=== PATIENT | female | born 1960 | race Caucasian/White ===

== ENCOUNTER → 2017-05-11 | Outpatient (CLI) | payer BC ==
[~2017-05-11] MED LIST: GADOBENATE 529MG/1ML 15ML VIAL IVP ONE; KET10 PO; LEV125 PO; LEVO137T23 PO; PER PO
--- NOTE | 2017-05-11 10:05 | RADIOLOGY IMAGING REPORT ---
FACILITY: [facility] [place] PATIENT NAME: Amber Maria : 1960 MR: [id number] V: [id number] EXAM DATE: ORDERING PHYSICIAN: JEANNIE SHAH TECHNOLOGIST: Location: [facility] [place] Patient: Amber Maria : 1960 Visit/Account:[id number] Date of Sevice: 05/11/2017 EXAMINATION: MRI Brain without IV contrast MRI Brain with IV contrast History: Loss of balance COMPARISON STUDIES: none TECHNIQUE: Multi-planar, multi-sequence brain MRI was performed before and after IV gadolinium. Contrast: 15 mL of IV MultiHance FINDINGS: Paranasal sinuses / mastoid air cells: negative Calvarium and scalp: negative White matter: A few scattered foci of FLAIR signal hyperintensity in the white matter compatible with chronic small vessel disease. Several of these foci demonstrate mildly increased signal intensity o n diffusion weighted images without corresponding ADC dropout and are most compatible with T2 shine t hrough. No definite acute ischemia. Ventricles / sulci / fissures: negative Masses / hemorrhage / midline shift: negative Extra-axial spaces: Normal for age. Enhancement pattern: negative Vascular structures: negative Sagittal midline structures: negative Orbits: negative Visualized upper neck: negative IMPRESSION: 1. No evidence of an intracranial mass, hemorrhage or acute ischemia. 2. Mild chronic small vessel disease. Report Dictated By: Ric Jorge MD at 05/11/2017 9:56 AM Report E-Signed By: Ric Jorge MD at 05/11/2017 10:01 AM WSN:[id number]
--- NOTE | 2017-05-11 10:11 | RADIOLOGY IMAGING REPORT ---
[place] [facility] [place]: Amber Maria : 1960 MR: [id number] V: [id number] EXAM DATE: ORDERING PHYSICIAN: JEANNIE SHAH TECHNOLOGIST: Location: [facility] Patient: Amber Maria : 1960 Visit/Account:[id number] Date of Sevice: 05/11/2017 Study: SHOULDERS BILAT 2 OR MORE VIEW Indication: Chronic pain Comparison study: None Findings: AP views of both shoulders and in internal and external rotation as well as Y views of each shoulder demonstrate that on the right side, there is no evidence of glenohumeral dislocation or acr omioclavicular separation. The proximal humerus, scapula, and clavicle are all intact. There is no evidence of acute fracture. There is no evidence of lytic or blastic bony lesion. On the left side, there is no evidence of significant abnormality of the glenohumeral or acromioclavi cular joints. The left clavicle scapula and proximal humerus are all intact. The visualized soft tissues are unremarkable. IMPRESSION: Unremarkable exam Report Dictated By: Jose Portillo at 05/11/2017 9:53 AM Report E-Signed By: Jose Portillo at 05/11/2017 10:07 AM WSN:[email or web address]
--- NOTE | 2017-05-11 11:09 | RADIOLOGY IMAGING REPORT ---
FACILITY: [facility] PATIENT NAME: Amber Maria : 1960 MR: [id number] V: [id number] EXAM DATE: ORDERING PHYSICIAN: JEANNIE SHAH TECHNOLOGIST: Location: [facility] Patient: Amber Maria : 1960 Visit/Account:[id number] Date of Sevice: 05/11/2017 Study: HIPS BILATERAL Indication: Hip pain Comparison study: None Findings: AP view the pelvis and frog-leg views of both hips demonstrates presence of mild degenerati ve disease of the hip joints bilaterally. The femoral heads and necks are unremarkable bilaterally. The pubic rami are unremarkable bilaterally. There is no evidence of abnormality of the sacroiliac joints. The visualized soft tissues are unremarkable. IMPRESSION: Mild degenerative disease of both hip joints, otherwise unremarkable. Report Dictated By: Jose Portillo at 05/11/2017 11:04 AM Report E-Signed By: Jose Portillo at 05/11/2017 11:05 AM WSN:[email or web address]
== END ==
LOC: MRI 02:33
PROVIDERS: ATTEND Emergency Medicine
DX: M16.0 Bilateral primary osteoarthritis of hip (principal); R26.89 Other abnormalities of gait and mobility
CPT/HCPCS: 70553; 73030; 73522; A9577

== ENCOUNTER → 2017-05-22 | Outpatient (CLI) | payer BC ==
--- NOTE | 2017-05-22 15:18 | RADIOLOGY IMAGING REPORT ---
FACILITY: [facility] - [place] PATIENT NAME: Amber Maria : 1960 MR: [id number] V: [id number] EXAM DATE: ORDERING PHYSICIAN: JEANNIE SHAH TECHNOLOGIST: Location: [facility] - [place] Patient: Amber Maria : 1960 Visit/Account:[id number] Date of Sevice: 05/22/2017 EXAMINATION: C SPINE W W/O CONTRAST INDICATION: Numbness and tingling in hands COMPARISON: None TECHNIQUE: Multiplane MR imaging was performed through the cervical spine without and with contrast. 15 ml multihance injected. FINDINGS: Vertebral body height: Normal Cord signal: There is thin confluent high signal along the posterior lateral margins of the cord on b oth sides extending from the C2-3 disc space level through the visible upper thoracic cord visible on the axial T2 acquisitions only. Marrow signal: Normal Prevertebral and paraspinal soft tissues: Normal Enhancement: No pathologic enhancement. C2-3: No disc protrusion or canal narrowing. Mild right foraminal narrowing. C3-4: Small disc protrusion, mild canal narrowing, mild left and moderate right foraminal narrowing. C4-5: Minimal disc protrusion, no canal narrowing, mild to moderate left and moderate right foraminal narrowing. C5-6: Severe degenerative disc disease. 3.6 mm AP dimension posterior disc protrusion. Ligamentum fla vum thickening. Moderate to severe canal narrowing. Severe bilateral foraminal narrowing. C6-7: Severe degenerative disc disease, 3.7 mm AP dimension posterior disc protrusion. Mild to modera te canal narrowing. Severe bilateral foraminal narrowing. C7-T1: Normal IMPRESSION: 1. Moderate to severe C5-6 canal narrowing secondary to disc protrusion and ligamentum flavum thicken ing. 2. Mild to moderate C6-7 canal narrowing secondary to a disc protrusion as described above. 3. Nonenhancing curvilinear high signal within the lateral aspects of the cord extending from the C2- 3 disc space level through the visible thoracic cord. This may represent the baseline appearance of t he cord in this patient. Myelomalacia from prior ischemia or inflammation cannot be excluded. The res idua of MS/demyelination is felt unlikely given the craniocaudad extent of the finding. Nonspecific a cute to subacute myelitis of indeterminate etiology is felt less likely but cannot be entirely exclud ed. 4. Multilevel foraminal narrowing, see comments above. Report Dictated By: Issa Capone MD at 05/22/2017 3:03 PM Report E-Signed By: Issa Capone MD at 05/22/2017 3:13 PM WSN:[email or web address]
== END ==
LOC: MRI 01:15
PROVIDERS: ATTEND Emergency Medicine
DX: M48.02 Spinal stenosis, cervical region (principal); M50.222 Other cervical disc displacement at C5-C6 level; M50.223 Other cervical disc displacement at C6-C7 level
CPT/HCPCS: 72156; A9577

== ENCOUNTER 2017-06-17 12:42 | Outpatient (RCR) | payer BC ==
[2017-06-16] MEDS: CYANOCOBALAMIN 1000MCG/ML VIAL IM ONLY PRN (12:47)
[2017-06-16 12:55] VITALS: BP 128/79
[2017-06-17 12:42] VITALS: BP 120/79
[~2017-06-17 12:42] MED LIST changes: +CYAN1000 IJ; -GADOBENATE 529MG/1ML 15ML VIAL IVP ONE; +LEVO175T42 PO; +[UNRECOGNIZED DRUG - CODE] PO
[2017-06-17] MEDS: CYANOCOBALAMIN 1000MCG/ML VIAL IM ONLY PRN (12:45)
[2017-06-25] MEDS ORDERED: CYAN1000 IJ (16:24)
[2017-07-02] MEDS ORDERED: CYAN1000 IJ (16:34)
[2017-07-09] MEDS ORDERED: CYAN1000 IJ (16:14)
[2017-07-16] MEDS ORDERED: CYAN1000 IJ (16:33)
== END 2017-07-20 11:45 | disposition home or self-care (01) ==
LOC: SPU 12:42
PROVIDERS: ATTEND Emergency Medicine
DX: E53.8 Deficiency of other specified B group vitamins (principal)
CPT/HCPCS: 96372; J3420